=== PATIENT | female | born 1995 | race African-American/Black ===

== ENCOUNTER 2021-01-17 10:30 | Inpatient (IN) | payer OTHER ==
[~2021-01-17] VITALS: Ht 157.5 cm; Wt 72.7 kg
[2021-01-17] MEDS ORDERED: NEUR100C PO (10:44)
[2021-01-17] MEDS ORDERED: SERT-141 PO (10:44)
[2021-01-17 11:13] LABS: HEMATOCRIT 40.1 % (36.0-47.0); HEMOGLOBIN 13.2 g/dl (12.0-15.5); MEAN CORPUSCULAR HEMOGLOBIN 29.4 pg (27.0-33.0); MEAN CORPUSCULAR HGB CONC 32.9 g/dl (32.0-36.5); MEAN CORPUSCULAR VOLUME 89.3 fl (80.0-96.0); PLATELET COUNT, AUTOMATED 363 10^3/uL (150-450); RED BLOOD COUNT 4.49 10^6/uL (4.00-5.40); WHITE BLOOD COUNT 4.5 10^3/uL (4.0-10.0)
[2021-01-17] MEDS ORDERED: SERT25TA21 PO (11:29)
[2021-01-17 11:44] LABS: AMPHETAMINES LEVEL URINE NEGATIVE (NEGATIVE); BARBITURATES URINE NEGATIVE (NEGATIVE); BENZODIAZEPINES URINE NEGATIVE (NEGATIVE); CANNABINOIDS URINE NEGATIVE (NEGATIVE); COCAINE METABOLITE URINE NEGATIVE (NEGATIVE); METHADONE URINE NEGATIVE (NEGATIVE); OPIATES URINE NEGATIVE (NEGATIVE); PHENCYCLIDINE URINE NEGATIVE (NEGATIVE)
[2021-01-17 11:52] LABS: HCG, SERUM QUALITATIVE NEGATIVE (NEGATIVE)
[2021-01-17 11:54] LABS: ACETAMINOPHEN LEVEL < 2.0 UG/ML (10.0-30.0); ALBUMIN 4.1 GM/DL (3.2-5.2); ALT/SGPT 31 U/L (12-78); BILIRUBIN,DIRECT < 0.1 MG/DL (0.0-0.2); BILIRUBIN,TOTAL 0.2 MG/DL (0.2-1.0); BLOOD UREA NITROGEN 10 MG/DL (7-18); CALCIUM LEVEL 8.9 MG/DL (8.5-10.1); CARBON DIOXIDE LEVEL 28 MEQ/L (21-32); CHLORIDE LEVEL 109 MEQ/L (98-107); CREATININE FOR GFR 0.89 MG/DL (0.55-1.30); ETHYL ALCOHOL (ETHANOL) 0.005 % (0.000-0.010); GLOMERULAR FILTRATION RATE > 60.0 (>60); GLUCOSE, FASTING 89 MG/DL (70-100); POTASSIUM SERUM 4.2 MEQ/L (3.5-5.1); SALICYLATE LEVEL < 1.7 MG/DL (5.0-30.0); SODIUM LEVEL 141 MEQ/L (136-145); TOTAL PROTEIN 7.7 GM/DL (6.4-8.2)
[2021-01-17 12:22] LABS: RSV AMPLIFICATION NEGATIVE (NEGATIVE)
[2021-01-17] MEDS ORDERED: MAALOX 30 ML SUSP *UDC PO PRN (14:50)
[2021-01-17] MEDS ORDERED: MOM 30ML SUSPENSION UDC PO PRN (14:50)
[2021-01-17] MEDS ORDERED: ACETAMINOPHEN TAB 650MG DOSE (2X325MG) PO PRN (14:50)
[2021-01-17 16:04] VITALS: BP 130/86
[2021-01-17] MEDS: NICOTINE 21MG/24HR 1 EA TRANSDERMAL TD PRN (18:56)
[2021-01-17] MEDS: LORazepam 1 MG TAB PO PRN (18:56)
[2021-01-17] MEDS: GABAPENTIN 100 MG CAP PO SCH (21:22)
[2021-01-17] MEDS: traZODone 50 MG TAB PO PRN (21:25)
[2021-01-18 06:32] VITALS: BP 138/93
[2021-01-18] MEDS: GABAPENTIN 100 MG CAP PO SCH ×2 (09:56→21:15)
[2021-01-18] MEDS: SERTRALINE HCL 50 MG TAB PO SCH (09:56)
[2021-01-18] MEDS: LORazepam 1 MG TAB PO SCH ×3 (09:56→21:16)
--- NOTE | 2021-01-18 10:44 | MHHPEPDOC ---
General Date Of Admission: Jan 17, 2021 Legal Status: 9.39 Chief Complaint ". I was isolating myself in my room and was thinking about taking an overdose History of Present Illness HISTORY OF THE PRESENT ILLNESS: Patient is a 26 -year-old , female, who has no previous psychiatric history brought to the emergency room due to increasing social withdrawal and depression and vague suicidal thoughts. The patient is an active duty soldier and her is also active duty but he is deployed in [facility]. 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 She stated that she has been drinking almost every day and drinking up to a bottle of liquor last drank about 40 hours ago. She stated that she has been feeling anxious depressed sad and lonely at times and has been isolating herself in her room not feeling like talking to anybody and have no energy. She was having vague thoughts of taking an overdose and finally called behavioral health unit and was referred to emergency room for admission. She denies any drug use denies any history of psychosis and denies any prior history of suicidal attempt. . Psychiatric Review of Systems Depression (2 or more weeks): depressed mood, feelings of worthlesness, decreased energy, psychomotor changes, suicidal thoughts Bryanna (4 or more days of): denies Psychosis: denies PTSD: denies Anxiety: situational anxiety Past Psychiatric History previous Psychiatric Diagnosis: . No previous treatment Previous Psychiatric Admissions: . No previous hospitalizations Suicide Attempts: . No history of suicidal attempt Psychiatric Follow-up: . To be linked with the [facility] Psychiatric medications: . Not on any medicine Past Medical History Medical Problems Denies any Head Injury: No Seizures: No Hospitalizations: No Surgeries: No Family Medical/Psychiatric HX Medical Problems Noncontributory Psychiatric Disorders: No Addiction: No Suicide Attemps/Completions: No Addiction History alcohol Social History Childhood: . Born in [place] [facility] unremarkable childhood Abuse/Trauma:. No history of abuse Current Living Situation: . Lives with her 2 children Education: . High school and some college Employment: . Active duty for 6 years Social Support: . Legal: . No legal history Marital: . [place] 2 children ages 2 and 4 Mental Status Examination General Appearance: appears stated age Build: thin Demeanor: average, withdrawn Eye Contact: average, avoidant Activity: slowed, anxious Behavior: cooperative, withdrawn Speech: clear, slow, low in volume, non-spontaneous Mood: depressed, anxious Affect: constricted, appropriate, congruent, anxious Thought Process: logical/linear, depressed Thought Content (Delusions): none reported, other (Vague thoughts of taking overdose but no intent) Thought Content (Other): none reported Thought Content (Aggressive): none reported Perception (Hallucinations): none reported Perception (Other): none reported Cognition (Impairment of): none reported Cognition(Intelligence Est.): average Oriented: Awake, Alert, Oriented times three Insight: fair Judgment: Fair Psychosis: Denies Diagnoses Major depression single episode without psychosis alcohol use disorder A-FIB/CHADSVASC A-FIB History Current/History of A-Fib/PAF?: No Current PO Anticoag Therapy: No Age/Risk Factor Scoring CHADSVASC: CHADSVASC Response (Comments) Value Gender Risk Factor Female 1 Hx of CHF No 0 Hx of HTN No 0 Hx of Stroke/TIA/or VTE No 0 Hx of Diabetes No 0 Hx of Vascular Disease No 0 Total 1 Treatment Treatment ordered: NONE Assessment Markedly depressed with some psychomotor retardation and significant alcohol use disorder we will treat with antidepressant and give Ativan 1 mg 3 times a day for 3 days for possible withdrawal Initial Treatment Plan 1. Patient was admitted on a 9.39 status. 2. Complete history was obtained. 3. With patients permission, family will be contacted and database will be expa nded. 4. Patients medication regimen will be reviewed and changed accordingly. 5. Patient will be provided with protected environment. 6. Patient will be treated with individual, group, and milieu therapies. 7. Patient will receive supportive psych-education. 8. Discharge planning will commence immediately. 9. Outpatient follow-up treatment will be strongly recommended. 10. The initial treatment plan will focus initially on: * Depression. * Risk for suicide. ESTIMATED LENGTH OF STAY: 3-5 DAYS. TIME SPENT COUNSELING AND COORDINATING INITIAL CARE: 40 minutes. Tobacco Cessation Screen If Patient is a Smoker Patient is a smoker Tobacco Cessation Tx Ordered?: Yes N/A-No Antipsychotics Vital Signs Vital Signs Date Time Temp Pulse Resp B/P (MAP) Pulse Ox O2 Delivery O2 Flow Rate FiO2 01/18/21 06:32 98.1 72 16 138/93 (108) 100 Room Air Laboratory Data 24H Labs Laboratory Tests 2 01/17/21 10:45: Urine Opiates Screen NEGATIVE, Urine Methadone Screen NEGATIVE, Urine Barbiturates Screen NEGATIVE, Urine Phencyclidine Screen NEGATIVE, Urine Amphetamines Screen NEGATIVE, Urine Benzodiazepines Screen NEGATIVE, Urine Cocaine Metabolite Screen NEGATIVE, Urine Cannabinoids Screen NEGATIVE 01/17/21 10:52: Nucleated Red Blood Cells % (auto) 0.0, Anion Gap 4L, Glomerular Filtration Rate > 60.0, Calcium Level 8.9, Total Bilirubin 0.2, Direct Bilirubin < 0.1, Aspartate Amino Transf (AST/SGOT) 38H, Alanine Aminotransferase (ALT/SGPT) 31, Alkaline Phosphatase 60, Total Protein 7.7, Albumin 4.1, Albumin/Globulin Ratio 1.1L, Thyroid Stimulating Hormone (TSH) 2.740, Human Chorionic Gonadotropin, Qual NEGATIVE, Salicylates Level < 1.7L, Acetaminophen Level < 2.0L, Ethyl Alcohol Level 0.005 01/17/21 11:33: Coronavirus (COVID-19)(PCR) NEGATIVE, Influenza Type A (RT-PCR) NEGATIVE, Influenza Type B (RT-PCR) NEGATIVE, Respiratory Syncytial Virus (PCR) NEGATIVE CBC/BMP Laboratory Tests 01/17/21 10:52 Medications Scheduled Gabapentin (Neurontin) 100 Mg Capsule, 100 MG PO BID, (Reported) Sertraline HCl (Sertraline HCl) 25 Mg Tablet, 50 MG PO DAILY, (Reported) Allergies Coded Allergies: No Known Drug Allergies (Verified Allergy, Unknown, 01/17/21) ABHIJEET LEE M.D. Jan 18, 2021 10:32
[2021-01-18 17:26] VITALS: BP 141/84
--- NOTE | 2021-01-18 18:11 | HPEPDOC ---
[facility] Medical History & Physical Date of Admission Jan 17, 2021 Date of Service: Jan 18, 2021 History and Physical CHIEF COMPLAINT: Suicidal ideation HISTORY OF PRESENT ILLNESS: Mrs. Patel is a 26 year old female with anxiety and depression who is in the inpatient mental health unit for suicidal ideation. She was seen this afternoon. Denies any past medical history other than anxiety or depression. She was put on gabapentin for anxiety/depression. Denies any past surgical history. She tells me she does drink alcohol daily and today has been the longest without drinking. Otherwise, she vapes with nicotine. Patient feels well without any fever/chills, chest pain, dyspnea, abdominal pain, or dysuria. PAST MEDICAL HISTORY: 1. Anxiety/depression PAST SURGICAL HISTORY: Patient denies any past surgical history SOCIAL HISTORY: Tobacco use: Nicotine vape ETOH: Drinks daily Illicit drug use: Denies FAMILY HISTORY: Father: Does not know much about father's past medical history Mother: Mother has history of anxiety and depression ALLERGIES: Please see below. REVIEW OF SYSTEMS: CONSTITUTIONAL: Denies any fever or chills. ENT: Denies sore throat. RESPIRATORY: Denies shortness of breath. Denies cough. CARDIOVASCULAR: Denies chest pain. GASTROINTESTINAL: Denies abdominal pain. GENITOURINARY: Denies dysuria. CUTANEOUS: Denies rashes. MUSCULOSKELETAL: Denies muscle weakness. NEUROLOGICAL: Denies numbness. PSYCHOLOGICAL: Reports anxiety. Reports depression. HOME MEDICATIONS: Please see below. PHYSICAL EXAMINATION: VITAL SIGNS: Temperature 97.2, pulse 87, respiratory rate 16, blood pressure 114/84, pulse oximetry 100% on room air. GENERAL: Comfortable, in no apparent distress. HEENT: Head normocephalic/atraumatic, EOMI, sclera clear. NECK: Supple, no JVD. RESPIRATORY: Lungs clear to auscultation bilaterally, no rales, wheeze or rhonchi. CARDIOVASCULAR: Regular rate and rhythm. ABDOMEN: Soft, nontender, no guarding or rebound tenderness. Normal bowel sounds. MUSCLE SKELETAL: Muscle strength 5/5 in all extremities. NEUROLOGICAL: CN 312 grossly intact, no focal deficits noted. PSYCHOLOGICAL: Normal mood and affect LABORATORY DATA: See below. IMAGING: None MICROBIOLOGY: Please see below. ASSESSMENT and PLAN: 1. Suicidal ideation Being managed in the inpatient mental health unit 2. Alcohol abuse Patient tells me that she drinks every day Start patient on CIWA Start thiamine, folic acid, multivitamin Thank you for consulting us. We will sign off at this time. If there is any further questions or concerns, please do not hesitate to contact us. Vital Signs Vital Signs Date Time Temp Pulse Resp B/P (MAP) Pulse Ox O2 Delivery O2 Flow Rate FiO2 01/18/21 17:26 97.2 87 16 141/84 (103) 01/18/21 06:32 100 Room Air Home Medications Scheduled Gabapentin (Neurontin) 100 Mg Capsule, 100 MG PO BID Sertraline HCl (Sertraline HCl) 25 Mg Tablet, 50 MG PO DAILY Allergies Coded Allergies: No Known Drug Allergies (Verified Allergy, Unknown, 01/17/21) A-FIB/CHADSVASC A-FIB History Current/History of A-Fib/PAF?: No Age/Risk Factor Scoring CHADSVASC: CHADSVASC Response (Comments) Value Gender Risk Factor Female 1 Hx of CHF No 0 Hx of HTN No 0 Hx of Stroke/TIA/or VTE No 0 Hx of Diabetes No 0 Hx of Vascular Disease No 0 Total 1 FERMIN SOLARES DO Jan 18, 2021 18:10
[2021-01-18] MEDS: traZODone 50 MG TAB PO PRN (21:16)
[2021-01-18 22:59] VITALS: BP 144/88
[2021-01-19 05:39] VITALS: BP 104/72
[2021-01-19 06:00] VITALS: BP 104/72
[2021-01-19] MEDS: THIAMINE 100 MG TAB PO SCH (08:48)
[2021-01-19] MEDS: GABAPENTIN 100 MG CAP PO SCH ×2 (08:48→19:42)
[2021-01-19] MEDS: SERTRALINE HCL 50 MG TAB PO SCH (08:48)
[2021-01-19] MEDS: FOLIC ACID 1 MG TAB PO SCH (08:49)
[2021-01-19] MEDS: LORazepam 1 MG TAB PO SCH ×5 (08:49→19:42)
[2021-01-19] MEDS: MULTIVITAMINS/MINERALS THERAP 1 TAB PO SCH (08:49)
--- NOTE | 2021-01-19 10:55 | MHIPNPDOC ---
[facility] Progress Note Progress Note DATE OF SERVICE: 01/19/21 Patient has cooperated with all the medicine and maintaining good control and in no acute distress. Vital signs are stable and no signs or symptoms of acute w ithdrawal. She is however extremely withdrawn in bed and minimally responsive but denies any new problems and denies any active suicidal thoughts. She apparently has 1 previous admission with type of depression. She remains markedly depressed and withdrawn but cooperating with the treatment HISTORY:. VITAL SIGNS: See below. NEW TEST RESULTS:. CURRENT MEDICATIONS: See below. MENTAL STATUS EXAMINATION: Patient is a 26-year old female, who is in no acute distress. Speech: Is not productive. Language skills are fair. Thought processes including: Relevant but not productive. Thought content: Denies any problem. Abstract reasoning, and computation: Fair. Description of associations: Relevant. Description of abnormal or psychotic thoughts: Denies any hallucination. Judgment: Poor. Insight: poor]. Orientation: Oriented. Recent and remote memory: Unimpaired. Attention span and concentration: Poor. Language:. Fund of knowledge:. Mood: Depressed withdrawn. Affect: Blunted. DIAGNOSES: 1.. Major depression 2.. Alcohol use disorder 3.. ASSESSMENT: Not in any acute distress but no improvement MANAGEMENT PLAN: Continue with the Zoloft and Ativan. TIME SPENT: 20 minutes. Vital Signs Vital Signs Date Time Temp Pulse Resp B/P (MAP) Pulse Ox O2 Delivery O2 Flow Rate FiO2 01/19/21 06:00 98.3 67 16 104/72 (83) 98 01/19/21 05:39 Room Air Current Medications Current Medications Medications (Trade) Dose Ordered Sig/Rosa Isela Route PRN Reason Start Time Stop Time Status Last Admin Dose Admin Acetaminophen (Tylenol Tab) 650 mg Q6HP PRN PO HEADACHE or MILD DISCOMFORT 01/17/21 14:50 Al Hydrox/Mg Hydrox/Simethicone (Mylanta) 30 ml Q4HP PRN PO HEARTBURN/INDIGESTION 01/17/21 14:50 Folic Acid (Folic Acid) 1 mg DAILY PO 01/19/21 09:00 01/19/21 08:49 Gabapentin (Neurontin) 100 mg BID PO 01/17/21 21:00 01/19/21 08:48 Home Med (Med Rec Complete!) ASDIRECTED XX 01/17/21 11:30 01/17/21 11:36 DC Lorazepam (Ativan) 1 mg Q6HP PRN PO ANXIETY/AGITATION 01/17/21 14:50 01/17/21 18:56 Lorazepam (Ativan) 1 mg TID PO 01/18/21 09:00 01/21/21 08:40 01/19/21 08:49 Magnesium Hydroxide (Milk Of Magnesia) 30 ml DAILYPRN PRN PO CONSTIPATION 01/17/21 14:50 Multivitamins (Theragram-M) 1 tab DAILY PO 01/19/21 09:00 01/19/21 08:49 Nicotine (Nicoderm Cq 21mg) 1 patch DAILY PRN TD Nicotine withdrawl 01/17/21 14:50 01/17/21 18:56 Sertraline HCl (Zoloft) 50 mg DAILY PO 01/18/21 09:00 01/19/21 08:48 Thiamine HCl (Thiamine HCl) 100 mg DAILY PO 01/19/21 09:00 01/19/21 08:48 Trazodone HCl (Desyrel) 50 mg QHSP PRN PO INSOMNIA 01/17/21 14:50 01/18/21 21:16 Allergies Coded Allergies: No Known Drug Allergies (Verified Allergy, Unknown, 01/17/21) ABHIJEET LEE M.D. Jan 19, 2021 10:55
[2021-01-19] MEDS: LORazepam 1 MG TAB PO PRN (19:41)
[2021-01-19] MEDS: traZODone 50 MG TAB PO PRN (19:41)
[2021-01-20 05:42] VITALS: BP 118/69
[2021-01-20 06:00] VITALS: BP 118/69
[2021-01-20] MEDS: LORazepam 0.5 MG TAB PO SCH ×3 (09:26→21:14)
[2021-01-20] MEDS: MULTIVITAMINS/MINERALS THERAP 1 TAB PO SCH (09:26)
[2021-01-20] MEDS: FOLIC ACID 1 MG TAB PO SCH (09:26)
[2021-01-20] MEDS: THIAMINE 100 MG TAB PO SCH (09:26)
[2021-01-20] MEDS: SERTRALINE 100 MG TAB PO SCH (09:26)
[2021-01-20] MEDS: GABAPENTIN 100 MG CAP PO SCH ×2 (09:26→21:14)
--- NOTE | 2021-01-20 10:50 | MHIPNPDOC ---
[facility] Progress Note Progress Note DATE OF SERVICE: 01/20/21 The patient was reporting that she did not feel safe and she was very depressed and was put on one-to-one close observation yesterday. She has cooperated with the medicine and this morning she is in a little better mood and in good control and reports that she does not feel as bad. She is able to contract for safety and stated that she does not need one-to-one observation. Her vital signs within normal limit and she has no complaint of any acute alcohol withdrawal symptoms and is fully cooperating with the medicine. She is however very depressed and remains markedly withdrawn and not very productive. HISTORY:. VITAL SIGNS: See below. NEW TEST RESULTS:. CURRENT MEDICATIONS: See below. MENTAL STATUS EXAMINATION: Patient is a 26-year old female, who is in bed in no acute distress. Speech: Is a little more productive and relevant. Language skills are fair. Thought processes including: Relevant but not productive not spontaneous. Thought content: Denies any active suicidal plan. Abstract reasoning, and computation: Poor. Description of associations: Relevant. Description of abnormal or psychotic thoughts: Denies any hallucination or paranoia. Judgment: Fair. Insight: Fair.. Orientation: Oriented. Recent and remote memory: No gross impairment. Attention span and concentration:. Language:. Fund of knowledge:. Mood: Depressed. Affect: Blunted but appropriate. DIAGNOSES: 1.. Depressive disorder 2.. Alcohol use disorder 3.. ASSESSMENT: Not showing any acute withdrawal symptoms remains markedly depressed MANAGEMENT PLAN: Decrease Ativan to 0.5 mg 3 times a day continue with the Zoloft discontinue one-to-one observation. TIME SPENT: 20 minutes. Vital Signs Vital Signs Date Time Temp Pulse Resp B/P (MAP) Pulse Ox O2 Delivery O2 Flow Rate FiO2 01/20/21 06:00 87 118/69 01/20/21 05:42 98.7 16 97 Room Air Current Medications Current Medications Medications (Trade) Dose Ordered Sig/Rosa Isela Route PRN Reason Start Time Stop Time Status Last Admin Dose Admin Acetaminophen (Tylenol Tab) 650 mg Q6HP PRN PO HEADACHE or MILD DISCOMFORT 01/17/21 14:50 01/19/21 20:43 Al Hydrox/Mg Hydrox/Simethicone (Mylanta) 30 ml Q4HP PRN PO HEARTBURN/INDIGESTION 01/17/21 14:50 Folic Acid (Folic Acid) 1 mg DAILY PO 01/19/21 09:00 01/20/21 09:26 Gabapentin (Neurontin) 100 mg BID PO 01/17/21 21:00 01/20/21 09:26 Home Med (Med Rec Complete!) ASDIRECTED XX 01/17/21 11:30 01/17/21 11:36 DC Lorazepam (Ativan) 0.5 mg TID PO 01/20/21 09:00 01/20/21 09:26 Lorazepam (Ativan) 1 mg Q6HP PRN PO ANXIETY/AGITATION 01/17/21 14:50 01/19/21 19:41 Lorazepam (Ativan) 1 mg TID PO 01/18/21 09:00 01/20/21 07:45 DC 01/19/21 16:00 Magnesium Hydroxide (Milk Of Magnesia) 30 ml DAILYPRN PRN PO CONSTIPATION 01/17/21 14:50 Multivitamins (Theragram-M) 1 tab DAILY PO 01/19/21 09:00 01/20/21 09:26 Nicotine (Nicoderm Cq 21mg) 1 patch DAILY PRN TD Nicotine withdrawl 01/17/21 14:50 01/17/21 18:56 Sertraline HCl (Zoloft) 50 mg DAILY PO 01/18/21 09:00 01/20/21 07:45 DC 01/19/21 08:48 Sertraline HCl (Zoloft) 100 mg DAILY PO 01/20/21 09:00 01/20/21 09:26 Thiamine HCl (Thiamine HCl) 100 mg DAILY PO 01/19/21 09:00 01/20/21 09:26 Trazodone HCl (Desyrel) 50 mg QHSP PRN PO INSOMNIA 01/17/21 14:50 01/19/21 19:41 Allergies Coded Allergies: No Known Drug Allergies (Verified Allergy, Unknown, 01/17/21) ABHIJEET LEE M.D. Jan 20, 2021 10:50
[2021-01-20] MEDS: NICOTINE 21MG/24HR 1 EA TRANSDERMAL TD PRN (14:51)
[2021-01-20 17:28] VITALS: BP 120/62
[2021-01-20] MEDS: traZODone 50 MG TAB PO PRN (21:14)
[2021-01-21 07:05] VITALS: BP 115/83
[2021-01-21] MEDS: SERTRALINE 100 MG TAB PO SCH (08:22)
[2021-01-21] MEDS: LORazepam 0.5 MG TAB PO SCH ×3 (08:23→21:17)
[2021-01-21] MEDS: MULTIVITAMINS/MINERALS THERAP 1 TAB PO SCH (08:23)
[2021-01-21] MEDS: FOLIC ACID 1 MG TAB PO SCH (08:23)
[2021-01-21] MEDS: THIAMINE 100 MG TAB PO SCH (08:23)
[2021-01-21] MEDS: GABAPENTIN 100 MG CAP PO SCH ×2 (08:23→21:16)
[2021-01-21 16:15] VITALS: BP 129/83
[2021-01-21] MEDS: traZODone 100 MG TAB PO PRN (21:17)
[2021-01-22 05:50] VITALS: BP 98/59
[2021-01-22] MEDS: MULTIVITAMINS/MINERALS THERAP 1 TAB PO SCH (08:16)
[2021-01-22] MEDS: LORazepam 0.5 MG TAB PO SCH ×3 (08:16→22:06)
[2021-01-22] MEDS: FOLIC ACID 1 MG TAB PO SCH (08:16)
[2021-01-22] MEDS: SERTRALINE 100 MG TAB PO SCH (08:16)
[2021-01-22] MEDS: THIAMINE 100 MG TAB PO SCH (08:16)
[2021-01-22] MEDS: GABAPENTIN 100 MG CAP PO SCH ×2 (08:16→22:06)
[2021-01-22] MEDS: traZODone 100 MG TAB PO PRN (22:06)
--- NOTE | 2021-01-22 22:38 | MHIPN ---
[facility] PROGRESS NOTE DATE: 01/21/2021 The patient is seen via telepsychiatry due to the current Coronavirus crisis. The patient today states that she is pretty tired, stating she just could not sleep well last night. She says her depression is better, though "having a roommate makes me distressed." She is denying suicidal thoughts but she keeps imaging herself dying. She says her anxiety is worse. MENTAL STATUS EXAMINATION: She is alert and oriented times three. She is cooperative, verbally spontaneous. There is no formal thought disorder. She says her mood is depressed and anxious. Affect full range and appropriate. She is not psychotic, suicidal, or homicidal. Concentration and memory is good. Insight and judgment is good. DIAGNOSES: Unspecified depressive disorder. Alcohol use disorder. TREATMENT PLAN: We will continue to monitor the patient for her ongoing depression and anxiety and for her resolution of suicidal ideations and we will titrate her medications as indicated. MARK
[2021-01-23 06:09] VITALS: BP 130/64
[2021-01-23] MEDS: LORazepam 0.5 MG TAB PO SCH (08:39)
[2021-01-23] MEDS: THIAMINE 100 MG TAB PO SCH (08:39)
[2021-01-23] MEDS: SERTRALINE 100 MG TAB PO SCH (08:39)
[2021-01-23] MEDS: MULTIVITAMINS/MINERALS THERAP 1 TAB PO SCH (08:40)
[2021-01-23] MEDS: FOLIC ACID 1 MG TAB PO SCH (08:40)
[2021-01-23] MEDS: GABAPENTIN 100 MG CAP PO SCH ×2 (08:40→22:04)
--- NOTE | 2021-01-23 10:49 | MHIPNPDOC ---
[facility] Progress Note Progress Note DATE OF SERVICE: 01/23/21 The patient is maintaining good control and does not appear as preoccupied with withdrawn. She is a little more verbal and slightly more animated and admits t hat her suicidal thoughts are not as intense and she does not have any intent to kill herself. Apparently her is back in [place] as of Saturday and is caring for the children. She is feeling a little bit relieved about this. She stated that Zoloft is helping her but is still feeling depressed and hopeless at times. She is complaining of sleep paralysis and getting some hallucinations in between sleep and being awake. Patient was reassured about the hallucinations and supportive and education was given. She has not shown any acute withdrawal symptoms and I will discontinue Ativan. HISTORY:. VITAL SIGNS: See below. NEW TEST RESULTS:. CURRENT MEDICATIONS: See below. MENTAL STATUS EXAMINATION: Patient is a 26-year old female, who is in no acute distress. Speech: Is slightly more productive. Language skills are fair. Thought processes including: Rational and coherent. Thought content: Denies any suicidal intent. Abstract reasoning, and computation: Fair. Description of associations: Relevant. Description of abnormal or psychotic thoughts: No psychotic symptoms. Judgment: Fair. Insight: Fair.. Orientation: Oriented. Recent and remote memory: No gross impairment. Attention span and concentration: Fair. Language:. Fund of knowledge:. Mood: Moderately depressed. Affect: Blunted but appropriate. DIAGNOSES: 1.. Depressive disorder 2.. Alcohol use disorder 3.. ASSESSMENT: Showing slight improvement MANAGEMENT PLAN: Continue with the current treatment discontinue Ativan. TIME SPENT: 12 minutes. Vital Signs Vital Signs Date Time Temp Pulse Resp B/P (MAP) Pulse Ox O2 Delivery O2 Flow Rate FiO2 01/23/21 06:09 96.0 88 16 130/64 (86) 99 Room Air Current Medications Current Medications Medications (Trade) Dose Ordered Sig/Rosa Isela Route PRN Reason Start Time Stop Time Status Last Admin Dose Admin Acetaminophen (Tylenol Tab) 650 mg Q6HP PRN PO HEADACHE or MILD DISCOMFORT 01/17/21 14:50 01/19/21 20:43 Al Hydrox/Mg Hydrox/Simethicone (Mylanta) 30 ml Q4HP PRN PO HEARTBURN/INDIGESTION 01/17/21 14:50 Folic Acid (Folic Acid) 1 mg DAILY PO 01/19/21 09:00 01/23/21 08:40 Gabapentin (Neurontin) 100 mg BID PO 01/17/21 21:00 01/23/21 08:40 Home Med (Med Rec Complete!) ASDIRECTED XX 01/17/21 11:30 01/17/21 11:36 DC Lorazepam (Ativan) 0.5 mg TID PO 01/20/21 09:00 01/23/21 08:39 Lorazepam (Ativan) 1 mg Q6HP PRN PO ANXIETY/AGITATION 01/17/21 14:50 01/19/21 19:41 Lorazepam (Ativan) 1 mg TID PO 01/18/21 09:00 01/20/21 07:45 DC 01/19/21 16:00 Magnesium Hydroxide (Milk Of Magnesia) 30 ml DAILYPRN PRN PO CONSTIPATION 01/17/21 14:50 01/22/21 08:17 Multivitamins (Theragram-M) 1 tab DAILY PO 01/19/21 09:00 01/23/21 08:40 Nicotine (Nicoderm Cq 21mg) 1 patch DAILY PRN TD Nicotine withdrawl 01/17/21 14:50 01/20/21 14:51 Sertraline HCl (Zoloft) 50 mg DAILY PO 01/18/21 09:00 01/20/21 07:45 DC 01/19/21 08:48 Sertraline HCl (Zoloft) 100 mg DAILY PO 01/20/21 09:00 01/23/21 08:39 Thiamine HCl (Thiamine HCl) 100 mg DAILY PO 01/19/21 09:00 01/23/21 08:39 Trazodone HCl (Desyrel) 50 mg QHSP PRN PO INSOMNIA 01/17/21 14:50 01/21/21 10:57 DC 01/20/21 21:14 Trazodone HCl (Desyrel) 100 mg QHSP PRN PO INSOMNIA 01/21/21 10:55 01/22/21 22:06 Allergies Coded Allergies: No Known Drug Allergies (Verified Allergy, Unknown, 01/17/21) ABHIJEET LEE M.D. Jan 23, 2021 10:49
[2021-01-23 19:21] VITALS: BP 135/83
[2021-01-23] MEDS: traZODone 100 MG TAB PO PRN (22:04)
[2021-01-24 06:43] VITALS: BP 102/56
[2021-01-24] MEDS: SERTRALINE 100 MG TAB PO SCH (08:08)
[2021-01-24] MEDS: GABAPENTIN 100 MG CAP PO SCH (08:08)
[2021-01-24] MEDS: FOLIC ACID 1 MG TAB PO SCH (08:09)
[2021-01-24] MEDS: THIAMINE 100 MG TAB PO SCH (08:09)
[2021-01-24] MEDS: MULTIVITAMINS/MINERALS THERAP 1 TAB PO SCH (08:09)
[2021-01-24] MEDS ORDERED: ZOLO100T PO (09:26)
[2021-01-24] MEDS ORDERED: TRAZ-257 PO (09:26)
--- NOTE | 2021-01-24 11:49 | MHDSPDOC ---
[facility] Discharge Summary Discharge Summary DATE OF ADMISSION: Jan 17, 2021 at 14:47 DATE OF DISCHARGE: Jan 24, 2021 at 11:17 DISCHARGE DIAGNOSES: 1.. Depressive disorder NOS 2.. Alcohol use disorder REASON FOR ADMISSION: 26-year-old female with a history of alcohol use and depression admitted due to increasing depression daily alcohol use and vague suicidal thoughts. 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 CONSULTANTS INVOLVED: TREATMENT AND PROGRESS ON THE UNIT : Patient was put on CIWA protocol given Ativan 1 mg 3 times daily reduced to half milligram 3 times a day and discontinued and she did not experience any acute withdrawal symptoms. She was started on Zoloft 50 mg daily increased 200 mg daily and she has tolerated well. She was also seen for supportive therapy and lethality evaluation.. HOSPITAL COURSE: She was initially markedly withdrawn and not very productive and remained extremely depressed. She responded well to the supportive therapy and medications and showed a gradual significant improvement. She appears much more animated and speech is more productive and denies any more suicidal thoughts. She is relieved that her is back to [place] and is able to support her in denies any more suicidal thoughts and willing to continue with outpatient treatment. DISCHARGE ASSESSMENT: Much improved stable and not suicidal MENTAL STATUS EXAMINATION ON DISCHARGE: Patient is a 26-year old female, who is cooperative in no acute distress. Speech is productive and rational. Language skills are good. Thought processes including: Coherent and relevant. Thought content: Denies any suicidal thoughts. Abstract reasoning, and computation: Fair. Description of associations: Organized. Description of abnormal or psychotic thoughts: Denies any psychotic symptoms. Judgment: Fair. Insight: Fair. Orientation to well oriented. Recent and remote memory: Unimpaired. Attention span and concentration:. Language:. Fund of knowledge:. Mood: Mildly anxious about returning home and the job. Affect: Blunted about preoccupied. MEDICATIONS ON DISCHARGE: -For. Zoloft 100 mg daily for 7 days -For. Trazodone 100 mg at bedtime for 7 days ordered with 3 refills -For. PLAN/FOLLOWUP ARRANGEMENTS: Arranged by the neighborhood planner. The amount of time spent in the coordination of care for this patient was approximately 35 minutes. ETOH/Disorder Med Rx ETOH/DRUG DISORDER RX: N/A Vital Signs/I&Os Vital Signs Date Time Temp Pulse Resp B/P (MAP) Pulse Ox O2 Delivery O2 Flow Rate FiO2 01/24/21 06:43 98.1 73 18 102/56 (71) 98 Room Air Medications Scheduled Gabapentin (Neurontin) 100 Mg Capsule, 100 MG PO BID, (Reported) Sertraline Hcl (Zoloft) 100 Mg Tablet, 100 MG PO DAILY for deprrssion for 7 Days, #7 Scheduled PRN Trazodone HCl (Trazodone HCl) 100 Mg Tablet, 100 MG PO QHSP PRN for INSOMNIA for 7 Days, #7 Allergies Coded Allergies: No Known Drug Allergies (Verified Allergy, Unknown, 01/17/21) ABHIJEET LEE M.D. Jan 24, 2021 11:49
== END 2021-01-24 11:17 | disposition home or self-care (01) | DRG 881 ==
LOC: M ED 10:30 → M ED INP 14:47 → M PSY 15:31
PROVIDERS: ADMIT Psychiatry & Neurology Psychiatry; ATTEND Psychiatry & Neurology Psychiatry
DX: F32.9 Major depressive disorder, single episode, unspecified (principal); R45.851 Suicidal ideations; F10.10 Alcohol abuse, uncomplicated; F17.290 Nicotine dependence, other tobacco product, uncomplicated; Z20.822 Contact with and (suspected) exposure to COVID-19; Z79.899 Other long term (current) drug therapy; Z81.8 Family history of other mental and behavioral disorders; Z56.6 Other physical and mental strain related to work

== ENCOUNTER 2021-03-16 04:31 | Emergency (ER) | payer OTHER ==
[~2021-03-16] VITALS: Ht 160 cm; Wt 59.1 kg
[~2021-03-16 04:31] MED LIST: NEUR100C PO; SERT-141 PO; SERT25TA21 PO; TRAZ-257 PO; ZOLO100T PO
[2021-03-16 05:24] LABS: RSV AMPLIFICATION NEGATIVE (NEGATIVE)
[2021-03-16 05:27] LABS: BASO # 0.1 10^3/uL (0.0-0.2); BASO % 0.9 % (0.0-1.0); EOS # 0.4 10^3/uL (0.0-0.5); EOS % 5.4 % (0.0-3.0); HEMATOCRIT 39.6 % (36.0-47.0); HEMOGLOBIN 12.8 g/dl (12.0-15.5); LYMPH % 11.8 % (24.0-44.0); MEAN CORPUSCULAR HEMOGLOBIN 29.2 pg (27.0-33.0); MEAN CORPUSCULAR HGB CONC 32.3 g/dl (32.0-36.5); MEAN CORPUSCULAR VOLUME 90.4 fl (80.0-96.0); MONO # 0.7 10^3/uL (0.0-0.8); MONO % 8.4 % (2.0-8.0); PLATELET COUNT, AUTOMATED 284 10^3/uL (150-450); RED BLOOD COUNT 4.38 10^6/uL (4.00-5.40); WHITE BLOOD COUNT 8.1 10^3/uL (4.0-10.0)
[2021-03-16 05:57] LABS: ALBUMIN 3.4 GM/DL (3.2-5.2); ALT/SGPT 24 U/L (12-78); BILIRUBIN,DIRECT < 0.1 MG/DL (0.0-0.2); BILIRUBIN,TOTAL 0.3 MG/DL (0.2-1.0); BLOOD UREA NITROGEN 24 MG/DL (7-18); CARBON DIOXIDE LEVEL 29 MEQ/L (21-32); CHLORIDE LEVEL 109 MEQ/L (98-107); CK-MB VALUE MASS < 1.0 NG/ML (<3.6); CPK CREATINE PHOSPHOKINASE 171 U/L (26-192); GLOMERULAR FILTRATION RATE > 60.0 (>60); GLUCOSE, FASTING 89 MG/DL (70-100); LIPASE 246 U/L (73-393); MB/CK RELATIVE INDEX 0.58 (< OR =4); SODIUM LEVEL 141 MEQ/L (136-145); TROPONIN I < 0.02 NG/ML (< 0.10)
[2021-03-16 06:00] LABS: HCG, SERUM QUALITATIVE NEGATIVE (NEGATIVE)
[2021-03-16] MEDS ORDERED: BENZONATATE 100 MG CAP PO ONE (06:35)
--- NOTE | 2021-03-16 06:47 | ECGEPIP ---
[facility] - ED Test Date: 2021-03-16 Pat Name: ALONSO FISHER Department: Room: - Gender: Female Rn Orthopedic: JOSETTE : 1995 Requested By: ALYSE Pfeiffer Order Number: [id number] Reading MD: Tyler Watts Measurements Intervals [place] Rate: 70 P: 58 WA: 188 QRS: 27 QRSD: 72 T: 27 QT: 392 QTc: 423 Interpretive Statements Normal sinus rhythm POOR R WAVE PROGRESSION BENIGN EARLY REPOLARIZATION NO PRIORS FOR COMPARISON Electronically Signed on 03-16-2021 6:47:36 EDT by Tyler Watts
[2021-03-16 07:31] VITALS: O2SAT 100
--- NOTE | 2021-03-16 08:09 | REPVR ---
PROCEDURE INFORMATION: Exam: XR Chest Exam date and time: 03/16/2021 6:35 AM Age: 26 years old Clinical indication: Pain; Angina pectoris; Additional info: Chest pain TECHNIQUE: Imaging protocol: XR of the chest. Views: 1 view. COMPARISON: No relevant prior studies available. FINDINGS: Lungs: Unremarkable. No consolidation. Pleural spaces: Unremarkable. No pleural effusion. No pneumothorax. Heart/Mediastinum: Unremarkable. No cardiomegaly. Bones/joints: Unremarkable. IMPRESSION: No acute findings. Electronically signed by: Jose De Jesus Thakkar On 03/16/2021 08:09:00 AM
[2021-03-16] MEDS ORDERED: ACETAMINOPHEN 500 MG TAB PO ONE (08:25)
[2021-03-16] MEDS ORDERED: TESS100C PO (08:26)
[2021-03-16] MEDS ORDERED: FLON1SPR NARES (08:26)
[2021-03-16 09:03] VITALS: BP 115/77
== END 2021-03-16 09:06 | disposition home or self-care (01) ==
LOC: M ED 04:31
DX: J06.9 Acute upper respiratory infection, unspecified (principal); B34.9 Viral infection, unspecified; J30.9 Allergic rhinitis, unspecified; R94.31 Abnormal electrocardiogram [ECG] [EKG]; F41.9 Anxiety disorder, unspecified; F33.9 Major depressive disorder, recurrent, unspecified; F17.290 Nicotine dependence, other tobacco product, uncomplicated; Z79.899 Other long term (current) drug therapy

== ENCOUNTER 2021-03-30 21:44 | Inpatient (IN) | payer OTHER ==
[~2021-03-30] VITALS: Ht 154.9 cm; Wt 72.7 kg
[~2021-03-30 21:44] MED LIST changes: +FLON1SPR NARES; +TESS100C PO
[2021-03-30 22:53] LABS: HEMATOCRIT 36.3 % (36.0-47.0); HEMOGLOBIN 11.8 g/dl (12.0-15.5); MEAN CORPUSCULAR HEMOGLOBIN 28.7 pg (27.0-33.0); MEAN CORPUSCULAR HGB CONC 32.5 g/dl (32.0-36.5); MEAN CORPUSCULAR VOLUME 88.3 fl (80.0-96.0); PLATELET COUNT, AUTOMATED 329 10^3/uL (150-450); RED BLOOD COUNT 4.11 10^6/uL (4.00-5.40); WHITE BLOOD COUNT 7.8 10^3/uL (4.0-10.0)
[2021-03-30 23:17] LABS: AMPHETAMINES LEVEL URINE NEGATIVE (NEGATIVE); BARBITURATES URINE NEGATIVE (NEGATIVE); BENZODIAZEPINES URINE NEGATIVE (NEGATIVE); CANNABINOIDS URINE NEGATIVE (NEGATIVE); COCAINE METABOLITE URINE NEGATIVE (NEGATIVE); METHADONE URINE NEGATIVE (NEGATIVE); OPIATES URINE NEGATIVE (NEGATIVE); PHENCYCLIDINE URINE NEGATIVE (NEGATIVE)
[2021-03-30 23:20] LABS: HCG, SERUM QUALITATIVE NEGATIVE (NEGATIVE)
[2021-03-30 23:22] LABS: RSV AMPLIFICATION NEGATIVE (NEGATIVE)
[2021-03-30 23:26] LABS: ACETAMINOPHEN LEVEL < 2.0 UG/ML (10.0-30.0); ALBUMIN 3.8 GM/DL (3.2-5.2); ALT/SGPT 24 U/L (12-78); BILIRUBIN,DIRECT 0.2 MG/DL (0.0-0.2); BILIRUBIN,TOTAL 0.7 MG/DL (0.2-1.0); BLOOD UREA NITROGEN 15 MG/DL (7-18); CALCIUM LEVEL 8.8 MG/DL (8.5-10.1); CARBON DIOXIDE LEVEL 25 MEQ/L (21-32); CHLORIDE LEVEL 107 MEQ/L (98-107); CREATININE FOR GFR 1.07 MG/DL (0.55-1.30); ETHYL ALCOHOL (ETHANOL) < 0.003 % (0.000-0.010); GLOMERULAR FILTRATION RATE > 60.0 (>60); GLUCOSE, FASTING 88 MG/DL (70-100); POTASSIUM SERUM 3.9 MEQ/L (3.5-5.1); SALICYLATE LEVEL < 1.7 MG/DL (5.0-30.0); SODIUM LEVEL 139 MEQ/L (136-145); TOTAL PROTEIN 7.3 GM/DL (6.4-8.2)
[2021-03-30] MEDS ORDERED: traZODone 50 MG TAB PO PRN (23:50)
[2021-03-30] MEDS ORDERED: MOM 30ML SUSPENSION UDC PO PRN (23:50)
[2021-03-30] MEDS ORDERED: MAALOX 30 ML SUSP *UDC PO PRN (23:50)
[2021-03-31] MEDS ORDERED: FLUTISP (00:31)
[2021-03-31] MEDS ORDERED: ALLE1TAB23 PO (00:31)
[2021-03-31] MEDS ORDERED: FLUTICASONE PROP 0.05% NASAL SPRAY 16 GM (FLONASE) PRN (00:35)
[2021-03-31] MEDS ORDERED: HOME MED LIST COMPLETE! XX SCH (00:35)
[2021-03-31 01:23] VITALS: BP 125/90
[2021-03-31] MEDS ORDERED: INFLUENZA QUADRIVALENT PF VACCINE 0.5ML SYRINGE IM ONE (09:00)
--- NOTE | 2021-03-31 14:08 | MHHPEPDOC ---
General Date Of Admission: Mar 30, 2021 Legal Status: 9.39 Chief Complaint "Multiple things but the main reason was suicidal thoughts that are invasive and sleeping problems." History of Present Illness HISTORY OF THE PRESENT ILLNESS: Patient is a 26 -year-old , Active Duty, , female, who reports suicidal ideations and having difficulty sleeping. This is her 3rd hospitalization and was recently admitted to this facility in January 2021. She reports that much of her depression stems from being in the . Reports feeling tired of the [employer], feels stressed and overwh elmed at work. Feels like she's run down. Then she starts to withdraw and isolate. Feels like she is overworked and does too much. Reports getting leave date is June 02 and out of the [employer] is July 2021. States that earlier this week she had a strong desire to drown herself in the bathtub. States that she only wants to take a holistic approach to her mental illness, but reports that she has not been taking care of children. Appears to have poor insight with regards to the severity and gravity of the illness. Isabella Crystal is recommending halfway care. PER ED REPORT: Pt initially was referred by [facility] after presenting there for an urgent crisis walk. During interview, she reported being sleep deprived and 2 nights ago she had too much to drink and considered drowning herself in the bathtub. Pt was last admitted to [facility] January,. Pt states, "I'm in a really dangerous spot right now and if I don't get help, I will kill myself." Pt reports suffering from intrusive suicidal thoughts for the past week. She had a suicide gesture 2 days ago while intoxicated. States she filled the tub with water (up to her neck) and contemplated drowning herself, but did not follow through and talked to her instead. Suicidal stressors include still feeling overwhelmed at work and at home, states the work load is just too much. Admits she was last hospitalized to [facility] January, and was deployed to [place]. A [place] message was sent at that time and spouse was able to return home. Pt still feels overwhelmed even with spouse being home. She has 2 young children at home. Other triggers include suffering from AH which are keeping her up at night. AH are described as "being scary" and tell her to wake up in the night or she is going to . She continues to voice SI, denies a plan currently. Psychiatric Review of Systems Depression (2 or more weeks): depressed mood (all year ), anhedonia, insomnia/hypersomnia (having trouble getting to sleep and staying to sleep, reports sleep paralysis, feels like she is being held down, noise makes me jumpy), feelings of excess/guilt (feels guilty eating, height and weight was taken at [employer] and she is over the limit and that angered), decreased energy, difficulty concentrating (poor focus), appetite changes, psychomotor changes, suicidal thoughts Bryanna (4 or more days of): denies Psychosis: auditory hallucination (hears ringing), visual hallucination (at times during the night) PTSD: denies Anxiety: situational anxiety, stressor related anxiety Past Psychiatric History Previous Psychiatric Diagnosis: Major depressive disorder. Previous Psychiatric Admissions: This is her third hospitalization, last hospitalization in this facility January 2021. Suicide Attempts: history of suicide attempts. But reports that she was in the bathtub and had a moment that she wanted to drown herself Psychiatric Follow-up: [facility] Psychiatric medications: None current. Past Medical History Medical Problems Denies any acute or chronic conditions Head Injury: No Seizures: No Hospitalizations: Yes Surgeries: No Family Medical/Psychiatric HX Psychiatric Disorders: No Addiction: No Suicide Attemps/Completions: No Addiction History nicotine, alcohol Social History Patient requests psychosocial history be obtained from last hospitalization, reports that she is very tired of talking Childhood: Born in [facility], unremarkable childhood Abuse/Trauma: No history of abuse Current Living Situation: Lives with her spouse and 2 children. Education: High school and some college. 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 Social Support: . Legal: No legal Marital: for 4 years, was in [facility] [facility], has 2 children Mental Status Examination General Appearance: well groomed, appears stated age, hospital scubs/clothing Build: average Demeanor: average Eye Contact: average Activity: average Behavior: cooperative Speech: clear, low in volume Mood: depressed, anxious Affect: flat Thought Process: logical/linear Thought Content (Delusions): none reported Thought Content (Other): guarded, coherent Thought Content (Aggressive): none reported Perception (Hallucinations): auditory Perception (Other): none reported Cognition (Impairment of): none reported Cognition(Intelligence Est.): average Oriented: Awake, Alert, Oriented times three Insight: fair Judgment: Fair Psychosis: Denies Diagnoses Major depressive disorder, recurrent, moderate Alcohol Use Disorder A-FIB/CHADSVASC A-FIB History Current/History of A-Fib/PAF?: No Current PO Anticoag Therapy: No Assessment Patient is a 26 -year-old , Active Duty, , female, who reports suicidal ideations and having difficulty sleeping. This is her 3rd hospitalization and was recently admitted to this facility in January 2021. She reports that much of her depression stems from being in the . Reports feeling tired of the [employer], feels stressed and overwhelmed at work. Patient was recently admitted to this facility on 01/2021 and was given diagnosis of Major Depressive Disorder. Patient states that she had been drinking the night that she came in and had a sudden impulsive thought to drown herself in the bathtub. Patient's third hospitalization raises concerns for Isabella Crystal who recommends that patient have a long-term hospitalization. We will work with Isabella Crystal and encourage the patient to consider this option. Patient states that this time she is not agreeable to medications and states the following is what she would like to help her: Has a therapy pet uses essential oils volunteers at the zoo wants natural therapies I have reviewed with the patient medications side effects indications contraindications and she continues to report that she prefers to take a holistic approach. Patient to be admitted on an involuntary status to [facility], patient to participate in unit activities group therapies individual therapy and milieu therapy. We will discharge when she is stable and at her baseline Initial Treatment Plan 1. Patient was admitted on a [9.39] status. 2. Complete history was obtained. 3. With patients permission, family will be contacted and database will be expanded. 4. Patients medication regimen will be reviewed and changed accordingly. 5. Patient will be provided with protected environment. 6. Patient will be treated with individual, group, and milieu therapies. 7. Patient will receive supportive psych-education. 8. Discharge planning will commence immediately. 9. Outpatient follow-up treatment will be strongly recommended. 10. The initial treatment plan will focus initially on: * Depression. * Risk for suicide. * Substance use disorder ESTIMATED LENGTH OF STAY: 3-5 DAYS. TIME SPENT COUNSELING AND COORDINATING INITIAL CARE: 60 minutes. N/A-No Antipsychotics Vital Signs Vital Signs Date Time Temp Pulse Resp B/P (MAP) Pulse Ox O2 Delivery O2 Flow Rate FiO2 03/31/21 01:23 97.8 87 18 125/90 (102) 100 Room Air Laboratory Data 24H Labs Laboratory Tests 2 03/30/21 22:32: Nucleated Red Blood Cells % (auto) 0.0, Anion Gap 7L, Glomerular Filtration Rate > 60.0, Calcium Level 8.8, Total Bilirubin 0.7, Direct Bilirubin 0.2, Aspartate Amino Transf (AST/SGOT) 20, Alanine Aminotransferase (ALT/SGPT) 24, Alkaline Phosphatase 56, Total Protein 7.3, Albumin 3.8, Albumin/Globulin Ratio 1.1L, Thyroid Stimulating Hormone (TSH) 2.290, Human Chorionic Gonadotropin, Qual NEGATIVE, Salicylates Level < 1.7L, Urine Opiates Screen NEGATIVE, Urine Methadone Screen NEGATIVE, Acetaminophen Level < 2.0L, Urine Barbiturates Screen NEGATIVE, Urine Phencyclidine Screen NEGATIVE, Urine Amphetamines Screen NEGATIVE, Urine Benzodiazepines Screen NEGATIVE, Urine Cocaine Metabolite Screen NEGATIVE, Urine Cannabinoids Screen NEGATIVE, Ethyl Alcohol Level < 0.003 03/30/21 22:33: Coronavirus (COVID-19)(PCR) NEGATIVE, Influenza Type A (RT-PCR) NEGATIVE, Influenza Type B (RT-PCR) NEGATIVE, Respiratory Syncytial Virus (PCR) NEGATIVE CBC/BMP Laboratory Tests 03/30/21 22:32 Medications Scheduled PRN Fexofenadine HCl (Fexofenadine HCl) 180 Mg Tablet, 180 MG PO DAILY PRN for ALLERGY SYMPTOMS, (Reported) Fluticasone Propionate (Fluticasone Propionate) 16 Gm [place].susp, 1 SPRAY NA BID PRN for NASAL CONGESTION, (Reported) Allergies Coded Allergies: No Known Drug Allergies (Verified Allergy, Unknown, 01/17/21) JODY DÍAZ NP Mar 31, 2021 13:31
--- NOTE | 2021-03-31 16:23 | HPEPDOC ---
[facility] Medical History & Physical Date of Admission Mar 30, 2021 Date of Service: Mar 31, 2021 History and Physical Chief complaint: Who presented to the ER with suicidal thoughts History of present illness: Patient is a 26-year-old female who presented to the emergency room with suicidal thoughts. She was admitted to the inpatient mental health unit under the care of psychiatry. Hospitalist service was consulted for medical screening evaluation. Currently patient denies any headache, nausea, vomiting, chest pain, shortness of breath, cough, palpitations, abdominal pain, constipation, diarrhea, or urinary discomfort. She denies any recent fevers or chills. Patient reports her appetite is generally okay and she is unsure of any weight changes as she does not measure her weight. Past Medical History: No past medical history Past Surgical History: No past surgical history Allergies: See below Medications: See below Family History: - Mother and father with history of mental illness and high blood pressure Social History: - Patient reports that she faints drinks alcohol socially and denies the use of drugs - Denies recent travel or sick contacts - Lives with and 2 children - Occupation; active Review of Systems: 10 point review of systems complete, all negative otherwise stated in HPI Physical exam: - Vitals: BP [125/90], HR [87], RR [18], Sat [100%RA], Temp [97.8F] - General: Lying in bed, Speaking in full sentences, AAOx3 - HEENT: NC, AT, PERRLA - CVS: RRR, +S1S2 - Lungs: Fair air entry bilaterally, No appreciable wheezing / rales / rhonchi - Abdomen: Soft, Non-distended, Non-tender - Extremities: No lower extremity edema, No calf tenderness - Neuro: No focal motor or sensory deficit - Skin: No visible rashes Labs: See below Imaging: See below EKG: See below Assessment and Plan: Suicidal ideation - Patient was admitted to the inpatient mental health unit under the care of psychiatry - Currently being managed by psychiatry No significant past medical history DVT prophylaxis - Will c/w early ambulation Female de icer finisher was present throughout the duration of this history and physical examination Thank you for this consultation. Hospital service will now sign off; please reconsult as needed. Vital Signs Vital Signs Date Time Temp Pulse Resp B/P (MAP) Pulse Ox O2 Delivery O2 Flow Rate FiO2 03/31/21 01:23 97.8 87 18 125/90 (102) 100 Room Air Laboratory Data Labs 24H Laboratory Tests 2 03/30/21 22:32: Nucleated Red Blood Cells % (auto) 0.0, Anion Gap 7L, Glomerular Filtration Rate > 60.0, Calcium Level 8.8, Total Bilirubin 0.7, Direct Bilirubin 0.2, Aspartate Amino Transf (AST/SGOT) 20, Alanine Aminotransferase (ALT/SGPT) 24, Alkaline Phosphatase 56, Total Protein 7.3, Albumin 3.8, Albumin/Globulin Ratio 1.1L, Thyroid Stimulating Hormone (TSH) 2.290, Human Chorionic Gonadotropin, Qual NEGATIVE, Salicylates Level < 1.7L, Urine Opiates Screen NEGATIVE, Urine Methadone Screen NEGATIVE, Acetaminophen Level < 2.0L, Urine Barbiturates Screen NEGATIVE, Urine Phencyclidine Screen NEGATIVE, Urine Amphetamines Screen NEGATIVE, Urine Benzodiazepines Screen NEGATIVE, Urine Cocaine Metabolite Screen NEGATIVE, Urine Cannabinoids Screen NEGATIVE, Ethyl Alcohol Level < 0.003 03/30/21 22:33: Coronavirus (COVID-19)(PCR) NEGATIVE, Influenza Type A (RT-PCR) NEGATIVE, Influenza Type B (RT-PCR) NEGATIVE, Respiratory Syncytial Virus (PCR) NEGATIVE CBC/BMP Laboratory Tests 03/30/21 22:32 Home Medications Scheduled PRN Fexofenadine HCl (Fexofenadine HCl) 180 Mg Tablet, 180 MG PO DAILY PRN for ALLERGY SYMPTOMS Fluticasone Propionate (Fluticasone Propionate) 16 Gm [place].susp, 1 SPRAY NA BID PRN for NASAL CONGESTION Allergies Coded Allergies: No Known Drug Allergies (Verified Allergy, Unknown, 01/17/21) MARVIN MONROE MD Mar 31, 2021 16:23
[2021-03-31 18:30] VITALS: BP 133/69
[2021-03-31] MEDS: NICOTINE 21MG/24HR 1 EA TRANSDERMAL TD SCH (20:32)
[2021-04-01] MEDS ORDERED: LORazepam 1 MG TAB PO ONE (04:35)
[2021-04-01 06:00] VITALS: BP 105/60
[2021-04-01] MEDS ORDERED: SERTRALINE HCL 50 MG TAB PO SCH (09:00)
[2021-04-01] MEDS ORDERED: LORazepam 1 MG TAB PO PRN (09:00)
[2021-04-01] MEDS: NICOTINE 21MG/24HR 1 EA TRANSDERMAL TD SCH (09:58)
--- NOTE | 2021-04-01 15:01 | MHIPNPDOC ---
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 This is her 3rd hospitalization and was recently admitted to this facility in January 2021. She reports that much of her depression stems from being in the . Reports feeling tired of the [employer], feels stressed and overwhelmed at work. Feels like she's run down. Then she starts to withdraw and isolate. Feels like she is overworked and does too much. Reports getting leave date is June 02 and out of the [employer] is July 2021. States that earlier this week she had a strong desire to drown herself in the bathtub. States that she only wants to take a holistic approach to her mental illness, but reports that she has not been taking care of children. Appears to have poor insight with regards to the severity and gravity of the illness. Isabella Crystal is recommending half-way care. PER ED REPORT: Pt initially was referred by [facility] after presenting there for an urgent crisis walk. During interview, she reported being sleep deprived and 2 nights ago she had too much to drink and considered drowning herself in the bathtub. Pt was last admitted to [facility] January,. Pt states, "I'm in a really dangerous spot right now and if I don't get help, I will kill myself." Pt reports suffering from intrusive suicidal thoughts for the past week. She had a suicide gesture 2 days ago while intoxicated. States she filled the tub with water (up to her neck) and contemplated drowning herself, but did not follow through and talked to her instead. Suicidal stressors include still feeling overwhelmed at work and at home, states the work load is just too much. Admits she was last hospitalized to [facility] January, and was deployed to [place]. A [place] message was sent at that time and spouse was able to return home. Pt still feels overwhelmed even with spouse being home. She has 2 young children at home. Other triggers include suffering from AH which are keeping her up at night. AH are described as "being scary" and tell her to wake up in the night or she is going to . She continues to voice SI, denies a plan currently." VITAL SIGNS: See below. NEW TEST RESULTS: See below CURRENT MEDICATIONS: See below. MENTAL STATUS EXAMINATION: General Appearance: well groomed, appears stated age, hospital scubs/clothing Build: average Demeanor: average Eye Contact: average Activity: average Behavior: cooperative Speech: clear, low in volume Mood: depressed, anxious Affect: flat Thought Process: logical/linear Thought Content (Delusions): none reported Thought Content (Other): guarded, coherent Thought Content (Aggressive): none reported Perception (Hallucinations): auditory Perception (Other): none reported Cognition (Impairment of): none reported Cognition(Intelligence Est.): average Oriented: Awake, Alert, Oriented times three Insight: fair Judgment: Fair Psychosis: Denies Diagnoses Major depressive disorder, recurrent, moderate Alcohol Use Disorder ASSESSMENT: She says she is still hearing voices, she gets scared of them, she says she has nightmares and she has had sleep paralysis for a long time ( she feels suffocated). She threw up this morning, she is nauseous, she had diarrhea after her first Zoloft dose. Will discontinue Zoloft and will start Lexapro 10 mgs PO daily. Will start Abilify 2 mgs PO QHS for hallucinations MANAGEMENT PLAN: As above TIME SPENT: 30 minutes. Vital Signs Vital Signs Date Time Temp Pulse Resp B/P (MAP) Pulse Ox O2 Delivery O2 Flow Rate FiO2 04/01/21 06:00 97.3 79 16 105/60 (75) 99 03/31/21 01:23 Room Air Current Medications Current Medications Medications (Trade) Dose Ordered Sig/Rosa Isela Route PRN Reason Start Time Stop Time Status Last Admin Dose Admin Acetaminophen (Tylenol Tab) 650 mg Q6HP PRN PO HEADACHE or MILD DISCOMFORT 03/30/21 23:50 Al Hydrox/Mg Hydrox/Simethicone (Mylanta) 30 ml Q4HP PRN PO HEARTBURN/INDIGESTION 03/30/21 23:50 03/31/21 09:51 Fluticasone Propionate (Flonase 0.05% Nasal [place]) 1 spray BID PRN NA NASAL CONGESTION 03/31/21 00:35 Home Med (Home Med List Complete!) ASDIRECTED XX 03/31/21 00:35 03/31/21 00:36 DC Lorazepam (Ativan) 1 mg TIDP PRN PO ANXIETY 04/01/21 09:00 Magnesium Hydroxide (Milk Of Magnesia) 30 ml DAILYPRN PRN PO CONSTIPATION 03/30/21 23:50 Nicotine (Nicoderm Cq 21mg) 1 patch DAILY TD 03/31/21 20:05 04/01/21 09:58 Sertraline HCl (Zoloft) 50 mg DAILY PO 04/01/21 09:00 04/01/21 09:58 Trazodone HCl (Desyrel) 50 mg QHSP PRN PO INSOMNIA 03/30/21 23:50 Allergies Coded Allergies: No Known Drug Allergies (Verified Allergy, Unknown, 01/17/21) OSIEL OCONNELL MD Apr 01, 2021 14:48
[2021-04-01 19:15] VITALS: BP 133/82
[2021-04-01] MEDS ORDERED: ARIPiprazole 2 MG TAB PO SCH (21:00)
[2021-04-02 06:00] VITALS: BP 124/74
[2021-04-02] MEDS: NICOTINE 21MG/24HR 1 EA TRANSDERMAL TD SCH (09:50)
[2021-04-02] MEDS: ESCITALOPRAM OXALATE 10 MG TAB (LEXAPRO) PO SCH (09:50)
--- NOTE | 2021-04-02 11:17 | MHIPNPDOC ---
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 This is her 3rd hospitalization and was recently admitted to this facility in January 2021. She reports that much of her depression stems from being in the . Reports feeling tired of the [employer], feels stressed and overwhelmed at work. Feels like she's run down. Then she starts to withdraw and isolate. Feels like she is overworked and does too much. Reports getting leave date is June 02 and out of the [employer] is July 2021. States that earlier this week she had a strong desire to drown herself in the bathtub. States that she only wants to take a holistic approach to her mental illness, but reports that she has not been taking care of children. Appears to have poor insight with regards to the severity and gravity of the illness. Isabella Crystal is recommending snf care. PER ED REPORT: Pt initially was referred by [facility] after presenting there for an urgent crisis walk. During interview, she reported being sleep deprived and 2 nights ago she had too much to drink and considered drowning herself in the bathtub. Pt was last admitted to [facility] January,. Pt states, "I'm in a really dangerous spot right now and if I don't get help, I will kill myself." Pt reports suffering from intrusive suicidal thoughts for the past week. She had a suicide gesture 2 days ago while intoxicated. States she filled the tub with water (up to her neck) and contemplated drowning herself, but did not follow through and talked to her instead. Suicidal stressors include still feeling overwhelmed at work and at home, states the work load is just too much. Admits she was last hospitalized to [facility] January, and was deployed to [place]. A [place] message was sent at that time and spouse was able to return home. Pt still feels overwhelmed even with spouse being home. She has 2 young children at home. Other triggers include suffering from AH which are keepi ng her up at night. AH are described as "being scary" and tell her to wake up in the night or she is going to . She continues to voice SI, denies a plan currently." VITAL SIGNS: See below. NEW TEST RESULTS: See below CURRENT MEDICATIONS: See below. MENTAL STATUS EXAMINATION: General Appearance: well groomed, appears stated age, hospital scrubs/clothing Build: average Demeanor: average Eye Contact: average Activity: average Behavior: cooperative, calm Speech: clear, low in volume Mood: less depressed,less anxious Affect: flat/constricted Thought Process: logical/linear Thought Content (Delusions): none reported Thought Content (Other): guarded, coherent Thought Content (Aggressive): none reported Perception (Hallucinations): auditory hallucinations Perception (Other): none reported Cognition (Impairment of): none reported Cognition(Intelligence Est.): average Oriented: Awake, Alert, Oriented times three Insight: fair Judgment: Fair Psychosis: Denies Diagnoses Major depressive disorder, recurrent, moderate Alcohol Use Disorder ASSESSMENT: I will increase Abilify to 5 mgs Po daily, she says she feels better this morning, she denies medication side effects. She heard voices last night, about one hour. She says she hears children voices that tell her "it's OK", over and over. The woman's voice tells her weird stuff but she hears a man's voice that sounds very aggressive and tells her that she's going to . MANAGEMENT PLAN: As above TIME SPENT: 30 minutes. Vital Signs Vital Signs Date Time Temp Pulse Resp B/P (MAP) Pulse Ox O2 Delivery O2 Flow Rate FiO2 04/02/21 06:00 97.9 82 18 124/74 (91) 98 03/31/21 01:23 Room Air Current Medications Current Medications Medications (Trade) Dose Ordered Sig/Rosa Isela Route PRN Reason Start Time Stop Time Status Last Admin Dose Admin Acetaminophen (Tylenol Tab) 650 mg Q6HP PRN PO HEADACHE or MILD DISCOMFORT 03/30/21 23:50 Al Hydrox/Mg Hydrox/Simethicone (Mylanta) 30 ml Q4HP PRN PO HEARTBURN/INDIGESTION 03/30/21 23:50 03/31/21 09:51 Aripiprazole (AbiLIFY) 2 mg QHS PO 04/01/21 21:00 04/01/21 22:04 Escitalopram Oxalate (Lexapro) 10 mg DAILY PO 04/02/21 09:00 04/02/21 09:50 Fluticasone Propionate (Flonase 0.05% Nasal [place]) 1 spray BID PRN NA NASAL CONGESTION 03/31/21 00:35 Home Med (Home Med List Complete!) ASDIRECTED XX 03/31/21 00:35 03/31/21 00:36 DC Lorazepam (Ativan) 1 mg TIDP PRN PO ANXIETY 04/01/21 09:00 04/02/21 00:27 Magnesium Hydroxide (Milk Of Magnesia) 30 ml DAILYPRN PRN PO CONSTIPATION 03/30/21 23:50 Nicotine (Nicoderm Cq 21mg) 1 patch DAILY TD 03/31/21 20:05 04/02/21 09:50 Sertraline HCl (Zoloft) 50 mg DAILY PO 04/01/21 09:00 04/01/21 14:58 DC 04/01/21 09:58 Trazodone HCl (Desyrel) 50 mg QHSP PRN PO INSOMNIA 03/30/21 23:50 Allergies Coded Allergies: No Known Drug Allergies (Verified Allergy, Unknown, 01/17/21) OSIEL OCONNELL MD Apr 02, 2021 11:17
[2021-04-02 18:56] VITALS: BP 116/66
[2021-04-03 06:24] VITALS: BP 104/69
[2021-04-03] MEDS: ESCITALOPRAM OXALATE 10 MG TAB (LEXAPRO) PO SCH (08:50)
[2021-04-03] MEDS: NICOTINE 21MG/24HR 1 EA TRANSDERMAL TD SCH (08:51)
[2021-04-03] MEDS: ACETAMINOPHEN TAB 650MG DOSE (2X325MG) PO PRN ×2 (08:52→17:12)
--- NOTE | 2021-04-03 13:16 | MHIPNPDOC ---
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 This is her 3rd hospitalization and was recently admitted to this facility in January 2021. She reports that much of her depression stems from being in the . Reports feeling tired of the [employer], feels stressed and overwhelmed at work. Feels like she's run down. Then she starts to withdraw and isolate. Feels like she is overworked and does too much. Reports getting leave date is June 02 and out of the [employer] is July 2021. States that earlier this week she had a strong desire to drown herself in the bathtub. States that she only wants to take a holistic approach to her mental illness, but reports that she has not been taking care of children. Appears to have poor insight with regards to the severity and gravity of the illness. Isabella Crystal is recommending [facility] care. PER ED REPORT: Pt initially was referred by [facility] after presenting there for an urgent crisis walk. During interview, she reported being sleep deprived and 2 nights ago she had too much to drink and considered drowning herself in the bathtub. Pt was last admitted to [facility] January,. Pt states, "I'm in a really dangerous spot right now and if I don't get help, I will kill myself." Pt reports suffering from intrusive suicidal thoughts for the past week. She had a suicide gesture 2 days ago while intoxicated. States she filled the tub with water (up to her neck) and contemplated drowning herself, but did not follow through and talked to her instead. Suicidal stressors include still feeling overwhelmed at work and at home, states the work load is just too much. Admits she was last hospitalized to [facility] January, and was deployed to [place]. A [place] message was sent at that time and spouse was able to return home. Pt still feels overwhelmed even with spouse being home. She has 2 young children at home. Other triggers include suffering from AH which are keeping her up at night. AH are described as "being scary" and tell her to wake up in the night or she is going to . She continues to voice SI, denies a plan currently." VITAL SIGNS: See below. NEW TEST RESULTS: See below CURRENT MEDICATIONS: See below. 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 Speech: Is slow rate, low tone and volume Language skills are intact Thought processes including: linear and slow Thought content: reports depression and anxiety. Denies suicidal/homicidal ideation, planning or intent. Abstract reasoning, and computation: fair Description of associations: none Description of abnormal or psychotic thoughts: denies, none observed. Judgment: fair Insight: fair Orientation: alert and oriented to person, place, time and situation Recent and remote memory: intact Attention span and concentration: good Language: expansive Fund of knowledge: average Mood: Depressed mood/Dysphoric Affect: Constricted Diagnoses Major depressive disorder, recurrent, moderate Alcohol Use Disorder ASSESSMENT: Patient reports continued severe depression and anxiety. Patient appears quite dysphoric and depressed. She states that she worries about her h usband not supporting her decision to remain inpatient and go to [place]. She states that she does not feel that she could care for her family properly at this time due to her mood and anxiety. Reports that her sleep was very erratic at home and she was often sleep deprived. Feels that she needs a sleep study. She does not want Trazodone and states that she feels too sedated the rest of the next day. Trazodone was discontinued and she is agreeable to Hydroxyzine 50 mg for sleep. Patient was conversant about her frustrations about her spouse, how his dedication to the [employer] has caused her to feel that he doesn't support her needs now. She feels that he is trying to persuade her to come home sooner. She states "I know if I don't take care of myself, nothing will change." Pt reported an issue with her roommate in which she was feeling very anxious, had difficulty communicating this with night RN and then because very irritable with her room mate who was becoming agitated. She reports sleeping in the quiet room over the weekend and states that her sleep has been poor since before her admission. Patient appears quite despondent at times in the interview. MANAGEMENT PLAN: Continue medications as supportive therapy. Patient is agreeable to go to [place] TIME SPENT: 30 minutes. Vital Signs Vital Signs Date Time Temp Pulse Resp B/P (MAP) Pulse Ox O2 Delivery O2 Flow Rate FiO2 04/03/21 06:24 96.9 85 18 104/69 (81) 99 Room Air Current Medications Current Medications Medications (Trade) Dose Ordered Sig/Rosa Isela Route PRN Reason Start Time Stop Time Status Last Admin Dose Admin Acetaminophen (Tylenol Tab) 650 mg Q6HP PRN PO HEADACHE or MILD DISCOMFORT 03/30/21 23:50 04/03/21 08:52 Al Hydrox/Mg Hydrox/Simethicone (Mylanta) 30 ml Q4HP PRN PO HEARTBURN/INDIGESTION 03/30/21 23:50 03/31/21 09:51 Aripiprazole (AbiLIFY) 2 mg QHS PO 04/01/21 21:00 04/02/21 11:13 DC 04/01/21 22:04 Aripiprazole (AbiLIFY) 5 mg QHS PO 04/02/21 21:00 04/02/21 21:12 Escitalopram Oxalate (Lexapro) 10 mg DAILY PO 04/02/21 09:00 04/03/21 08:50 Fluticasone Propionate (Flonase 0.05% Nasal [place]) 1 spray BID PRN NA NASAL CONGESTION 03/31/21 00:35 Home Med (Home Med List Complete!) ASDIRECTED XX 03/31/21 00:35 03/31/21 00:36 DC Hydroxyzine HCl (Atarax) 50 mg QHSP PRN PO INSOMNIA 04/03/21 12:40 Lorazepam (Ativan) 1 mg TIDP PRN PO ANXIETY 04/01/21 09:00 04/02/21 00:27 Magnesium Hydroxide (Milk Of Magnesia) 30 ml DAILYPRN PRN PO CONSTIPATION 03/30/21 23:50 Nicotine (Nicoderm Cq 21mg) 1 patch DAILY TD 03/31/21 20:05 04/03/21 08:51 Sertraline HCl (Zoloft) 50 mg DAILY PO 04/01/21 09:00 04/01/21 14:58 DC 04/01/21 09:58 Trazodone HCl (Desyrel) 50 mg QHSP PRN PO INSOMNIA 03/30/21 23:50 04/03/21 12:40 DC 04/02/21 21:29 Allergies Coded Allergies: No Known Drug Allergies (Verified Allergy, Unknown, 01/17/21) JODY DÍAZ NP Apr 03, 2021 13:16
[2021-04-03 16:30] VITALS: BP 116/70
[2021-04-03] MEDS: hydrOXYzine 50 MG TAB PO PRN (22:32)
[2021-04-04 05:44] VITALS: BP 119/56
[2021-04-04] MEDS: ACETAMINOPHEN TAB 650MG DOSE (2X325MG) PO PRN (09:06)
[2021-04-04] MEDS: ESCITALOPRAM OXALATE 10 MG TAB (LEXAPRO) PO SCH (09:06)
[2021-04-04] MEDS: NICOTINE 21MG/24HR 1 EA TRANSDERMAL TD SCH (09:06)
--- NOTE | 2021-04-04 13:46 | MHIPNPDOC ---
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 This is her 3rd hospitalization and was recently admitted to this facility in January 2021. She reports that much of her depression stems from being in the . Reports feeling tired of the [employer], feels stressed and overwhelmed at work. Feels like she's run down. Then she starts to withdraw and isolate. Feels like she is overworked and does too much. Reports getting leave date is June 02 and out of the [employer] is July 2021. States that earlier this week she had a strong desire to drown herself in the bathtub. States that she only wants to take a holistic approach to her mental illness, but reports that she has not been taking care of children. Appears to have poor insight with regards to the severity and gravity of the illness. Isabella Crystal is recommending [facility]. PER ED REPORT: Pt initially was referred by [facility] after presenting there for an urgent crisis walk. During interview, she reported being sleep deprived and 2 nights ago she had too much to drink and considered drowning herself in the bathtub. Pt was last admitted to [facility] January,. Pt states, "I'm in a really dangerous spot right now and if I don't get help, I will kill myself." Pt reports suffering from intrusive suicidal thoughts for the past week. She had a suicide gesture 2 days ago while intoxicated. States she filled the tub with water (up to her neck) and contemplated drowning herself, but did not follow through and talked to her instead. Suicidal stressors include still feeling overwhelmed at work and at home, states the work load is just too much. Admits she was last hospitalized to [facility] January, and was deployed to [place]. A [place] message was sent at that time and spouse was able to return home. Pt still feels overwhelmed even with spouse being home. She has 2 young children at home. Other triggers include suffering from AH which are keepi ng her up at night. AH are described as "being scary" and tell her to wake up in the night or she is going to . She continues to voice SI, denies a plan currently." VITAL SIGNS: See below. NEW TEST RESULTS: See below CURRENT MEDICATIONS: See below. 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 Speech: Is slow rate, low tone and volume Language skills are intact Thought processes including: linear and slow Thought content: reports continued depression and decreased anxiety. Denies suicidal/homicidal ideation, planning or intent. Abstract reasoning, and computation: fair Description of associations: none Description of abnormal or psychotic thoughts: denies, none observed. Judgment: fair Insight: fair Orientation: alert and oriented to person, place, time and situation Recent and remote memory: intact Attention span and concentration: good Language: expansive Fund of knowledge: average Mood: Depressed mood/Dysphoric Affect: Constricted/Flat Diagnoses Major depressive disorder, recurrent, moderate Alcohol Use Disorder ASSESSMENT: Patient found in bed sleeping, agreeable to interview, reports continued severe depression and decreased anxiety. Patient appears quite dysphoric and depressed today. Reports that she feels better after having Abilify she has a surge of energy and feels up and wants to have this in the AM, feels that Lexapro may not be working but willing to take this at night. Reports that Hydroxyzine was effective for sleep. She appears very dysphoric. Had minimal responses in her interview. Poor eye contact. MANAGEMENT PLAN: Continue medications as supportive therapy. Patient is agreeable to go to [place] TIME SPENT: 30 minutes. Vital Signs Vital Signs Date Time Temp Pulse Resp B/P (MAP) Pulse Ox O2 Delivery O2 Flow Rate FiO2 04/04/21 05:44 97.2 78 16 119/56 (77) 99 Room Air Current Medications Current Medications Medications (Trade) Dose Ordered Sig/Rosa Isela Route PRN Reason Start Time Stop Time Status Last Admin Dose Admin Acetaminophen (Tylenol Tab) 650 mg Q6HP PRN PO HEADACHE or MILD DISCOMFORT 03/30/21 23:50 04/04/21 09:06 Al Hydrox/Mg Hydrox/Simethicone (Mylanta) 30 ml Q4HP PRN PO HEARTBURN/INDIGESTION 03/30/21 23:50 03/31/21 09:51 Aripiprazole (AbiLIFY) 2 mg QHS PO 04/01/21 21:00 04/02/21 11:13 DC 04/01/21 22:04 Aripiprazole (AbiLIFY) 5 mg QHS PO 04/02/21 21:00 04/03/21 20:53 Escitalopram Oxalate (Lexapro) 10 mg DAILY PO 04/02/21 09:00 04/04/21 09:06 Fluticasone Propionate (Flonase 0.05% Nasal [place]) 1 spray BID PRN NA NASAL CONGESTION 03/31/21 00:35 Home Med (Home Med List Complete!) ASDIRECTED XX 03/31/21 00:35 03/31/21 00:36 DC Hydroxyzine HCl (Atarax) 50 mg QHSP PRN PO INSOMNIA 04/03/21 12:40 04/03/21 22:32 Lorazepam (Ativan) 1 mg TIDP PRN PO ANXIETY 04/01/21 09:00 04/02/21 00:27 Magnesium Hydroxide (Milk Of Magnesia) 30 ml DAILYPRN PRN PO CONSTIPATION 03/30/21 23:50 Nicotine (Nicoderm Cq 21mg) 1 patch DAILY TD 03/31/21 20:05 04/04/21 09:06 Sertraline HCl (Zoloft) 50 mg DAILY PO 04/01/21 09:00 04/01/21 14:58 DC 04/01/21 09:58 Trazodone HCl (Desyrel) 50 mg QHSP PRN PO INSOMNIA 03/30/21 23:50 04/03/21 12:40 DC 04/02/21 21:29 Allergies Coded Allergies: No Known Drug Allergies (Verified Allergy, Unknown, 01/17/21) JDOY DÍAZ NP Apr 04, 2021 09:39
[2021-04-04 16:16] VITALS: BP 120/86
[2021-04-04] MEDS: hydrOXYzine 50 MG TAB PO PRN (22:25)
[2021-04-05 06:39] VITALS: BP 114/79
[2021-04-05] MEDS: NICOTINE 21MG/24HR 1 EA TRANSDERMAL TD SCH (08:22)
--- NOTE | 2021-04-05 13:31 | MHIPNPDOC ---
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 This is her 3rd hospitalization and was recently admitted to this facility in January 2021. She reports that much of her depression stems from being in the . Reports feeling tired of the [employer], feels stressed and overwhelmed at work. Feels like she's run down. Then she starts to withdraw and isolate. Feels like she is overworked and does too much. Reports getting leave date is June 02 and out of the [employer] is July 2021. States that earlier this week she had a strong desire to drown herself in the bathtub. States that she only wants to take a holistic approach to her mental illness, but reports that she has not been taking care of children. Appears to have poor insight with regards to the severity and gravity of the illness. Isabella Crystal is recommending [facility] care. PER ED REPORT: Pt initially was referred by [facility] after presenting there for an urgent crisis walk. During interview, she reported being sleep deprived and 2 nights ago she had too much to drink and considered drowning herself in the bathtub. Pt was last admitted to [facility] January,. Pt states, "I'm in a really dangerous spot right now and if I don't get help, I will kill myself." Pt reports suffering from intrusive suicidal thoughts for the past week. She had a suicide gesture 2 days ago while intoxicated. States she filled the tub with water (up to her neck) and contemplated drowning herself, but did not follow through and talked to her instead. Suicidal stressors include still feeling overwhelmed at work and at home, states the work load is just too much. Admits she was last hospitalized to [facility] January, and was deployed to [place]. A [place] message was sent at that time and spouse was able to return home. Pt still feels overwhelmed even with spouse being home. She has 2 young children at home. Other triggers include suffering from AH which are keepi ng her up at night. AH are described as "being scary" and tell her to wake up in the night or she is going to . She continues to voice SI, denies a plan currently." VITAL SIGNS: See below. NEW TEST RESULTS: See below CURRENT MEDICATIONS: See below. 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 Speech: Is slow rate, low tone and volume Language skills are intact Thought processes including: linear and slow Thought content: reports continued depression and decreased anxiety. Denies suicidal/homicidal ideation, planning or intent. Abstract reasoning, and computation: fair Description of associations: none Description of abnormal or psychotic thoughts: denies, none observed. Judgment: fair Insight: fair Orientation: alert and oriented to person, place, time and situation Recent and remote memory: intact Attention span and concentration: good Language: expansive Fund of knowledge: average Mood: Depressed mood/Dysphoric Affect: Constricted/Flat Diagnoses Major depressive disorder, recurrent, moderate Alcohol Use Disorder ASSESSMENT: Patient was not assessed today, as she was given a pass from 9 AM-6 PM to get things in order for her transfer to [facility] in [place], [place]. According to staff she reports moderate depression but denies anxiety. Has suicidal thinking but denies planning or intent. Reports that these thoughts are intrusive. She has been compliant with medications. Assessment on 04/04/21 Patient found in bed sleeping, agreeable to interview, reports continued severe depression and decreased anxiety. Patient appears quite dysphoric and depressed today. Reports that she feels better after having Abilify she has a surge of energy and feels up and wants to have this in the AM, feels that Lexapro may not be working but willing to take this at night. Reports that Hydroxyzine was effective for sleep. She appears very dysphoric. Had minimal responses in her interview. Poor eye contact. MANAGEMENT PLAN: Continue medications as supportive therapy. Patient is agreeable to go to [place]. Lorazepam discontinued per request of Irma. TIME SPENT: 10 minutes. Vital Signs Vital Signs Date Time Temp Pulse Resp B/P (MAP) Pulse Ox O2 Delivery O2 Flow Rate FiO2 04/05/21 08:48 Room Air 04/05/21 06:39 97.9 79 16 114/79 (91) 99 Current Medications Current Medications Medications (Trade) Dose Ordered Sig/Rosa Isela Route PRN Reason Start Time Stop Time Status Last Admin Dose Admin Acetaminophen (Tylenol Tab) 650 mg Q6HP PRN PO HEADACHE or MILD DISCOMFORT 03/30/21 23:50 04/04/21 09:06 Al Hydrox/Mg Hydrox/Simethicone (Mylanta) 30 ml Q4HP PRN PO HEARTBURN/INDIGESTION 03/30/21 23:50 03/31/21 09:51 Aripiprazole (AbiLIFY) 2 mg QHS PO 04/01/21 21:00 04/02/21 11:13 DC 04/01/21 22:04 Aripiprazole (AbiLIFY) 5 mg QAM PO 04/05/21 09:00 04/05/21 08:21 Aripiprazole (AbiLIFY) 5 mg QHS PO 04/02/21 21:00 04/04/21 13:44 DC 04/03/21 20:53 Escitalopram Oxalate (Lexapro) 10 mg DAILY PO 04/02/21 09:00 04/04/21 13:44 DC 04/04/21 09:06 Escitalopram Oxalate (Lexapro) 10 mg QHS PO 04/05/21 21:00 Fluticasone Propionate (Flonase 0.05% Nasal [place]) 1 spray BID PRN NA NASAL CONGESTION 03/31/21 00:35 Home Med (Home Med List Complete!) ASDIRECTED XX 03/31/21 00:35 03/31/21 00:36 DC Hydroxyzine HCl (Atarax) 50 mg QHSP PRN PO INSOMNIA 04/03/21 12:40 04/04/21 22:25 Lorazepam (Ativan) 1 mg TIDP PRN PO ANXIETY 04/01/21 09:00 04/02/21 00:27 Magnesium Hydroxide (Milk Of Magnesia) 30 ml DAILYPRN PRN PO CONSTIPATION 03/30/21 23:50 Nicotine (Nicoderm Cq 21mg) 1 patch DAILY TD 03/31/21 20:05 04/05/21 08:22 Sertraline HCl (Zoloft) 50 mg DAILY PO 04/01/21 09:00 04/01/21 14:58 DC 04/01/21 09:58 Trazodone HCl (Desyrel) 50 mg QHSP PRN PO INSOMNIA 03/30/21 23:50 04/03/21 12:40 DC 04/02/21 21:29 Allergies Coded Allergies: No Known Drug Allergies (Verified Allergy, Unknown, 01/17/21) JODY DÍAZ NP Apr 05, 2021 13:31
[2021-04-05 18:14] VITALS: BP 131/82
[2021-04-05] MEDS: hydrOXYzine 50 MG TAB PO PRN (20:40)
[2021-04-05] MEDS ORDERED: ESCITALOPRAM OXALATE 10 MG TAB (LEXAPRO) PO SCH (21:00)
[2021-04-06 07:15] VITALS: BP 121/62
[2021-04-06] MEDS ORDERED: ABIL1TAB11 PO (08:55)
[2021-04-06] MEDS ORDERED: LEXA1TAB PO (08:56)
[2021-04-06] MEDS ORDERED: HYDR50TA70 PO (08:56)
[2021-04-06] MEDS ORDERED: NICO1DIS12 TOP (08:56)
[2021-04-06] MEDS: NICOTINE 21MG/24HR 1 EA TRANSDERMAL TD SCH (09:00)
--- NOTE | 2021-04-06 17:00 | MHDSPDOC ---
[facility] Discharge Summary Discharge Summary DATE OF ADMISSION: Mar 30, 2021 at 21:45 DATE OF DISCHARGE: Apr 06, 2021 at 12:57 DISCHARGE DIAGNOSES: Major depressive disorder, recurrent, moderate Alcohol Use Disorder REASON FOR ADMISSION: As per previous notes: " Patient is a 26 -year-old , [employer], , female, who reports suicidal ideations and having difficulty sleeping. This is her 3rd hospitalization and was recently admitted to this facility in January 2021. She reports that much of her depression stems from being in the . Reports feeling tired of the [employer], feels stressed and overwhelmed at work. Feels like she's run down. Then she starts to withdraw and isolate. Feels like she is overworked and does too much. Reports getting leave date is June 02 and out of the [employer] is July 2021. States that earlier this week she had a strong desire to drown herself in the bathtub. States that she only wants to take a holistic approach to her mental illness, but reports that she has not been taking care of children. Appears to have poor insight with regards to the severity and gravity of the illness. Isabella Crystal is recommending halfway care. PER ED REPORT: Pt initially was referred by [facility] after presenting there for an urgent crisis walk. During interview, she reported being sleep deprived and 2 nights ago she had too much to drink and considered drowning herself in the bathtub. Pt was last admitted to [facility] January,. Pt states, "I'm in a really dangerous spot right now and if I don't get help, I will kill myself." Pt rep orts suffering from intrusive suicidal thoughts for the past week. She had a suicide gesture 2 days ago while intoxicated. States she filled the tub with water (up to her neck) and contemplated drowning herself, but did not follow through and talked to her instead. Suicidal stressors include still feeling overwhelmed at work and at home, states the work load is just too much. Admits she was last hospitalized to [facility] January, and was deployed to [place]. A [place] message was sent at that time and spouse was able to return home. Pt still feels overwhelmed even with spouse being home. She has 2 young children at home. Other triggers include suffering from AH which are keeping her up at night. AH are described as "being scary" and tell her to wake up in the night or she is going to . She continues to voice SI, denies a plan currently." CONSULTANTS INVOLVED: See Medical H + P by Hospitalist TREATMENT AND PROGRESS ON THE UNIT: Patient was admitted to the [facility] on a 9.39 legal status was afforded the following treatment modalities: 1) Individual Therapy 2) Group Therapy 3) Medication Management 4) Milieu Therapy 5) Safe Environment HOSPITAL COURSE: Patient was admitted to [facility] on a 939 legal status. Pt found medications beneficial and tolerated them well. Mood, anxiety, and intrusive thoughts did not improve with treatment. Pt attended groups daily minimally during stay. Pts symptoms improved minimally with treatment. On day of discharge pt. reported continued depression and anxiety, denies insomnia, has fleeting SI, denies HI, denies hallucinations, and denies delusions. Patient was discharged to [place], [place] where she is receiving continued inpatient care. Pt felt safe for transfer. DISCHARGE ASSESSMENT: In today's interview, patient is alert and oriented, pt.s dress is appropriate. Hygiene and grooming is well-kempt. Smiles on approach and is pleasant and engaged in the interview. Reports continued depression and anxiety. Reports fleeting suicidal ideations but denies homicidal ideation, planning or intent. Denies and is not observed with leslie, psychotic symptoms of delusions, bizarre thinking, obsessions, paranoia, ruminations illogical thoughts, flight of ideas or having poor insight and judgement. Reinforced with patient need to abstain from alcohol and drugs. At discharge patient has normal mentation, and meets criteria for transfer today to [place]. Discussed indications of medications, potential benefits and risks, alternatives (including no treatment) and questions were encouraged and answered. Patient spoke about her spouse feeling scared. She states that she had no emotions while visiting her family yesterday and could not feel empathetic towards her being fearful of caring for the children. She states that she had guided him on the care of the children, paying for household bills and directed him on the appointments that the children had. She states that she felt quite empty and felt badly that even seeing her children gave her no enjoyment. Patient is appropriate for transfer to the inpatient unit in [place] as she has had small improvement in her symptoms of depression. 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 This is her 3rd hospitalization and was recently admitted to this facility in January 2021. Speech: Is fluid, conversant, normal rate, tone and volume Language skills are intact Thought processes including: linear and goal oriented Thought content: moderate depression and anxiety. Denies suicidal/homicidal ideation, planning or intent. Abstract reasoning, and computation: fair Description of associations: denies, none observed Description of abnormal or psychotic thoughts: denies, none observed. Judgment: fair Insight: fair Orientation: alert and oriented to person, place, time and situation Recent and remote memory: intact Attention span and concentration: good Language: expansive Fund of knowledge: average Mood: Depressed Mood Affect: Constricted Suicide Risk Assessment: 1) Does the patient wish to be ? No 2) Since your admission, have you had any actual thought of killing yourself? yes 3) Since your admission, have you been thinking about how you might do this? at times yes 4) Since your admission, have you had these thoughts and had some intention of acting on them? sometimes 5) Since your admission, have you started to work out or worked out the details of how to kill yourself? No 5A) Do you intent to carry out this plan? No 6) Have you ever done anything, started anything, or prepared to do anything with any intent to ? No 6A) How long since your admission did you do any of these? fleeting thoughts MEDICATIONS ON DISCHARGE: See Medication Reconciliation PLAN/FOLLOWUP ARRANGEMENTS: [place], [place] The amount of time spent in the coordination of care for this patient was approximately 25 minutes. ETOH/Disorder Med Rx ETOH/DRUG DISORDER RX: N/A Vital Signs/I&Os Vital Signs Date Time Temp Pulse Resp B/P (MAP) Pulse Ox O2 Delivery O2 Flow Rate FiO2 04/06/21 07:15 97.8 74 14 121/62 (81) 100 Room Air Medications Scheduled Aripiprazole (Abilify) 5 Mg Tablet, 1 TAB PO DAILY for depression for 30 Days, #30 (Reported) Escitalopram Oxalate (Lexapro) 10 Mg Tablet, 10 MG PO QHS for mood for 30 Days, #30 (Reported) Nicotine (Nicotine Patch) 21 Mg Patch.td24, 1 PATCH TOP DAILY for smoking cessation for 28 Days, #28 (Reported) Scheduled PRN Fexofenadine HCl (Fexofenadine HCl) 180 Mg Tablet, 180 MG PO DAILY PRN for ALLERGY SYMPTOMS, (Reported) Fluticasone Propionate (Fluticasone Propionate) 16 Gm [place].susp, 1 SPRAY NA BID PRN for NASAL CONGESTION, (Reported) Hydroxyzine HCl (Hydroxyzine HCl) 50 Mg Tablet, 50 MG PO QHSP PRN for slee for 30 Days, #30 (Reported) Allergies Coded Allergies: No Known Drug Allergies (Verified Allergy, Unknown, 01/17/21) JODY DÍAZ NP Apr 06, 2021 17:00
== END 2021-04-06 12:57 | DRG 885 ==
LOC: M ED 21:44 → M ED INP 21:45 → M PSY 03-31 01:01
PROVIDERS: ADMIT Student in an Organized Health Care Education/Training Program; ATTEND Psychiatry & Neurology Psychiatry
DX: F33.2 Major depressive disorder, recurrent severe without psychotic features (principal); R45.851 Suicidal ideations; F10.10 Alcohol abuse, uncomplicated; Z20.822 Contact with and (suspected) exposure to COVID-19; Z79.899 Other long term (current) drug therapy; Z56.3 Stressful work schedule